=== PATIENT | female | born 1975 | race Hispanic/Latino ===

== ENCOUNTER 2021-11-14 14:05 | Outpatient (CLI) | payer OTHER | END 2021-11-14 14:06 | disposition home or self-care (01) | LOC: BICMAMMO 14:05 | PROVIDERS: ATTEND Family Medicine | DX: Z12.31 Encounter for screening mammogram for malignant neoplasm of breast (principal) | CPT/HCPCS: 77063; 77067 ==

== ENCOUNTER 2021-11-22 09:38 | Outpatient (CLI) | payer OTHER | END 2021-11-22 09:39 | disposition home or self-care (01) | LOC: BICULT 09:38 | PROVIDERS: ATTEND Family Medicine | DX: R92.2 Inconclusive mammogram (principal) ==

== ENCOUNTER → 2021-11-29 | Day surgery (SDC) | payer OTHER | LOC: BICULT 12:44 | PROVIDERS: ATTEND Family Medicine | PROC: 0H9T3ZX Drainage of Right Breast, Percutaneous Approach, Diagnostic (ICD-10-PCS; principal; 2021-11-29) | DX: D24.1 Benign neoplasm of right breast (principal); Z88.0 Allergy status to penicillin | CPT/HCPCS: 19083; 88305 ==

== ENCOUNTER 2024-07-02 15:04 | Outpatient (CLI) | payer OTHER | END 2024-07-02 15:05 | disposition home or self-care (01) | LOC: BICMAMMO 15:04 | PROVIDERS: ATTEND Family Medicine | DX: Z12.31 Encounter for screening mammogram for malignant neoplasm of breast (principal) | CPT/HCPCS: 77063; 77067 ==